=== PATIENT | male | born 1990 | race Caucasian/White ===

== ENCOUNTER 2018-04-23 16:36 | Emergency (ER) | payer OTHER ==
[~2018-04-23] VITALS: Ht 177.8 cm; Wt 59.0 kg
[2018-04-23 16:50] LABS: BASOPHILS % (AUTO) 0 % (0-10); EOSINOPHILS # (AUTO) 0.2 10^3/uL (0.0-0.3); EOSINOPHILS % (AUTO) 2 % (0-10); HEMATOCRIT 46 % (40-54); HEMOGLOBIN 16.3 G/DL (13.3-17.7); LYMPHOCYTES # (AUTO) 2.5 X 10^3 (1.0-4.0); LYMPHOCYTES % (AUTO) 33 % (12-44); MEAN CORPUSCULAR HEMOGLOBIN 32 PG (25-34); MEAN CORPUSCULAR HGB CONC 35 G/DL (32-36); MEAN CORPUSCULAR VOLUME 90 FL (80-99); MEAN PLATELET VOLUME 10.6 FL (7.4-10.4); MONOCYTES # (AUTO) 0.6 X 10^3 (0.0-1.0); MONOCYTES % (AUTO) 8 % (0-12); NEUTROPHILS # (AUTO) 4.3 X 10^3 (1.8-7.8); NEUTROPHILS % (AUTO) 57 % (42-75); PLATELET COUNT 270 10^3/uL (130-400); RED BLOOD COUNT 5.09 10^6/uL (4.35-5.85); RED CELL DISTRIBUTION WIDTH 13.1 % (10.0-14.5); WHITE BLOOD COUNT 7.7 10^3/uL (4.3-11.0)
[2018-04-23 17:00] LABS: INR 1.1 (0.8-1.4); PROTHROMBIN TIME PATIENT 14.5 SEC (12.2-14.7)
[2018-04-23 17:08] LABS: ALANINE AMINOTRANSFERASE 17 U/L (0-55); ALBUMIN 5.1 GM/DL (3.2-4.5); ALKALINE PHOSPHATASE 70 U/L (40-136); BILIRUBIN,TOTAL 0.8 MG/DL (0.1-1.0); BUN/CREATININE RATIO 11; CARBON DIOXIDE 21 MMOL/L (21-32); CHLORIDE 110 MMOL/L (98-107); CREATININE SERUM 0.81 MG/DL (0.60-1.30); GFR ESTIMATED > 60; GLUCOSE 65 MG/DL (70-105); LIPASE 24 U/L (8-78); MAGNESIUM 2.6 MG/DL (1.8-2.4); POTASSIUM 3.8 MMOL/L (3.6-5.0); SODIUM 145 MMOL/L (135-145); TOTAL PROTEIN 8.4 GM/DL (6.4-8.2)
[2018-04-23 17:15] LABS: MYOGLOBIN SERUM 39.8 NG/ML (10.0-92.0)
--- NOTE | 2018-04-23 17:23 | Diagnostic Imaging Report ---
INDICATION: Chest pain and blurry vision. COMPARISON: Comparison is made with a prior study from March 08, 2008. FINDINGS: Lungs demonstrate no focal infiltrate or consolidation. There is no effusion. There is no pneumothorax. Heart size and mediastinal contours appear appropriate. Pulmonary vascularity appears within normal limits. No acute osseous abnormality is demonstrated. IMPRESSION: 1. No radiographic evidence of an acute cardiopulmonary process. Dictated by: Dictated on workstation # [id number]
[2018-04-23] MEDS ORDERED: LORazepam INJ 2 MG/ML (ATIVAN) VIAL IVP PRN (17:30)
[2018-04-23] MEDS ORDERED: KETOROLAC 30 MG/ML VIAL IVP ONE (17:30)
[2018-04-23] MEDS ORDERED: ANTACID SUSP 30 ML UDC (MYLANTA) PO ONE (17:30)
[2018-04-23] MEDS ORDERED: LIDOCAINE 2% VISCOUS 15 ML UDC PO ONE (17:30)
--- NOTE | 2018-04-23 17:30 | ED Chest Pain ---
General Chief Complaint: Chest Pain Stated Complaint: CP X 2 DAYS/VOMITING Nursing Triage Note: complaint of pain since yesterday. pt verbalized added stress in his life. drinking "alot" since thursday. states 1/2 gallen and smokes marijuana Nursing Sepsis Screen: No Definite Risk Source: patient Exam Limitations: no limitations History of Present Illness Date Seen by Provider: Apr 23, 2018 Time Seen by Provider: 17:28 Initial Comments To ER with reports chest pain shortness of breath and vomiting since yesterday. He drinks about half gallon of vodka daily and smokes marijuana daily. Been vomiting. He states his only had one beer today though. Timing/Duration: 4-6 hours Severity/Quality: moderate Location: central Radiation: no radiation Activities at Onset: none ASA po AGILE TESTER: No NTG SL AGILE TESTER: No Associated Symptoms: nausea/vomiting Allergies and Home Medications Allergies Coded Allergies: No Known Drug Allergies (Unverified , 04/23/18) Patient Home Medication List Home Medication List Reviewed: Yes Review of Systems Review of Systems Constitutional: see HPI EENTM: No Symptoms Reported Respiratory: No Symptoms Reported Cardiovascular: See HPI, Chest Pain Gastrointestinal: No Symptoms Reported Genitourinary: No Symptoms Reported Musculoskeletal: no symptoms reported Skin: no symptoms reported Psychiatric/Neurological: No Symptoms Reported Endocrine: No Symptoms Reported Past Nfvgizw-Jjghuy-Ipfwsy Hx Patient Social History Recent Foreign Travel: No Contact w/Someone Who Travel: No Recent Infectious Disease Expo: No Seasonal Allergies Seasonal Allergies: Yes Past Medical History Surgeries: Yes Vasectomy Respiratory: Yes Asthma Physical Exam Vital Signs Vital Signs - First Documented 04/23/18 16:40 Temp 98.5 Pulse 100 Resp 20 B/P (MAP) 130/91 (104) Pulse Ox 100 O2 Delivery Room Air Capillary Refill : Less Than 3 Seconds Height, Weight, BMI Height: 5'10.00" Weight: 130lbs. oz. 58.495688lx; BMI Method:Estimated General Appearance: No Apparent Distress, WD/WN, Other (oxygen saturations 100 % on room air) HEENT: PERRL/EOMI, TMs Normal Neck: Full Range of Motion, Normal Inspection Respiratory: No Accessory Muscle Use, No Respiratory Distress; No Respiratory Distress, No Rhonci, No Stridor, No Wheezing Cardiovascular: Regular Rate, Rhythm, Normal Peripheral Pulses Gastrointestinal: Non Tender, Soft Neurologic/Psychiatric: Alert, Oriented x3, Other (tearful, slurred speech, breath smells of alcohol-like substance) Skin: Normal Color, Warm/Dry Progress/Results/Core Measures Results/Orders Lab Results Laboratory Tests Test 04/23/18 16:42 Range/Units White Blood Count 7.7 4.3-11.0 10^3/uL Red Blood Count 5.09 4.35-5.85 10^6/uL Hemoglobin 16.3 13.3-17.7 G/DL Hematocrit 46 40-54 % Mean Corpuscular Volume 90 80-99 FL Mean Corpuscular Hemoglobin 32 25-34 PG Mean Corpuscular Hemoglobin Concent 35 32-36 G/DL Red Cell Distribution Width 13.1 10.0-14.5 % Platelet Count 270 130-400 10^3/uL Mean Platelet Volume 10.6 H 7.4-10.4 FL Neutrophils (%) (Auto) 57 42-75 % Lymphocytes (%) (Auto) 33 12-44 % Monocytes (%) (Auto) 8 0-12 % Eosinophils (%) (Auto) 2 0-10 % Basophils (%) (Auto) 0 0-10 % Neutrophils # (Auto) 4.3 1.8-7.8 X 10^3 Lymphocytes # (Auto) 2.5 1.0-4.0 X 10^3 Monocytes # (Auto) 0.6 0.0-1.0 X 10^3 Eosinophils # (Auto) 0.2 0.0-0.3 10^3/uL Basophils # (Auto) 0.0 0.0-0.1 10^3/uL Prothrombin Time 14.5 12.2-14.7 SEC INR Comment 1.1 0.8-1.4 Activated Partial Thromboplast Time 33 24-35 SEC Sodium Level 145 135-145 MMOL/L Potassium Level 3.8 3.6-5.0 MMOL/L Chloride Level 110 H 98-107 MMOL/L Carbon Dioxide Level 21 21-32 MMOL/L Anion Gap 14 5-14 MMOL/L Blood Urea Nitrogen 9 7-18 MG/DL Creatinine 0.81 0.60-1.30 MG/DL Estimat Glomerular Filtration Rate > 60 BUN/Creatinine Ratio 11 Glucose Level 65 L 70-105 MG/DL Calcium Level 10.0 8.5-10.1 MG/DL Corrected Calcium 8.5-10.1 MG/DL Magnesium Level 2.6 H 1.8-2.4 MG/DL Total Bilirubin 0.8 0.1-1.0 MG/DL Aspartate Amino Transf (AST/SGOT) 22 5-34 U/L Alanine Aminotransferase (ALT/SGPT) 17 0-55 U/L Alkaline Phosphatase 70 40-136 U/L Myoglobin 39.8 10.0-92.0 NG/ML Troponin I < 0.30 <0.30 NG/ML B-Type Natriuretic Peptide < 10.0 <100.0 PG/ML Total Protein 8.4 H 6.4-8.2 GM/DL Albumin 5.1 H 3.2-4.5 GM/DL Lipase 24 8-78 U/L Serum Alcohol 130 H <10 MG/DL My Orders Orders - ERICK FLAHERTY APRN Cbc With Automated Diff (04/23/18 16:45) Magnesium (04/23/18 16:45) Chest 1 View, Ap/Pa Only (04/23/18 16:45) Ekg Tracing (04/23/18 16:45) Cardiac Profile 1 (04/23/18 16:45) Comprehensive Metabolic Panel (04/23/18 16:45) Myoglobin Serum (04/23/18 16:45) Protime With Inr (04/23/18 16:45) Partial Thromboplastin Time (04/23/18 16:45) O2 (04/23/18 16:45) Monitor-Rhythm Ecg Trace Only (04/23/18 16:45) Lipid Panel (04/24/18 06:00) Saline Lock/Iv-Start (04/23/18 16:45) Lipase (04/23/18 16:45) BNP (04/23/18 16:45) Ketorolac Injection (Toradol Injection) (04/23/18 17:30) Antacid Suspension (Mylanta Suspension (04/23/18 17:30) Lidocaine 2% Viscous 15 Ml (Xylocaine Vi (04/23/18 17:30) Lorazepam Injection (Ativan Injection) (04/23/18 17:30) Alcohol (04/23/18 17:28) Ondansetron Injection (Zofran Injectio (04/23/18 18:00) Ns Iv 1000 Ml (Sodium Chloride 0.9%) (04/23/18 18:00) Medications Given in ED Current Medications Medications Dose Ordered Sig/Shweta Route Start Time Stop Time Status Last Admin Dose Admin Al Hydrox/Mg Hydrox/Simethicone 30 ml ONCE ONCE PO 04/23/18 17:30 04/23/18 17:31 DC 04/23/18 17:45 30 ML Ketorolac Tromethamine 30 mg ONCE ONCE IVP 04/23/18 17:30 04/23/18 17:31 DC 04/23/18 17:45 30 MG Lidocaine HCl 5 ml ONCE ONCE PO 04/23/18 17:30 04/23/18 17:31 DC 04/23/18 17:45 5 ML Lorazepam 1 mg ONCE PRN IVP 04/23/18 17:30 04/23/18 17:45 1 MG Vital Signs/I&O 04/23/18 16:40 Temp 98.5 Pulse 100 Resp 20 B/P (MAP) 130/91 (104) Pulse Ox 100 O2 Delivery Room Air Blood Pressure Mean: 104 Departure Impression Primary Impression: Chest pain Additional Impressions: Alcohol intoxication Gastritis Nausea Disposition: 01 HOME, SELF-CARE Condition: Stable Departure-Patient Inst. Decision time for Depature: 17:57 Referrals: BERNARDO BARKER DO (PCP/Family) Primary Care Physician Patient Instructions: Chest Pain That Is Not Caused by the Heart (DC) Add. Discharge Instructions: 1. Return to ER for any concerns 2. Follow up with your family doctor within one week All discharge instructions reviewed with patient and/or family. Voiced understanding. Scripts Pantoprazole Sodium (Protonix) 40 Mg Tablet.dr 40 MG PO DAILY, #30 TAB Prov: ERICK FLAHERTY [employer] 04/23/18 Ondansetron (Zofran Odt) 8 Mg Tab.rapdis 8 MG PO Q6H PRN for NAUSEA/VOMITING, #10 TAB Prov: ERICK FLHAERTY APRN 04/23/18 ERICK FLAHERTY APRN Apr 23, 2018 17:30
[2018-04-23] MEDS ORDERED: ONDANSETRON 4 MG/2 ML (SDV) Z0FRAN IVP ONE (18:00)
[2018-04-23] MEDS ORDERED: NS IV 1000 ML 1,000 ML IV SCH (18:00)
[2018-04-23] MEDS ORDERED: PANT40TA2 PO (18:07)
[2018-04-23] MEDS ORDERED: ONDA8TAB9 PO (18:07)
[2018-04-23 18:17] VITALS: BP 104/66
--- OUTSIDE RECORDS SUMMARY | 2018-04-24 12:07 | XMS REPORT ---
Author Author RENEE FORMAN [facility] Address [address] [place] [address] Care Team Providers Care Button Breaker Name Role Phone RENEE FORMAN Unavailable PROBLEMS Type Condition ICD9-CM Code [id number] Code Onset Dates Condition Status SNOMED Code Problem Partner relational problem Z63.0 Active 6402129260415 Problem Allergic rhinitis due to pollen, unspecified rhinitis seasonality J30.1 Active 18754647 Problem Unspecified asthma, uncomplicated J45.909 Active 34290320 Problem Need for prophylactic vaccination and inoculation, Influenza V04.81 Active 222094939 ALLERGIES No Information ENCOUNTERS Encounter Location Date Diagnosis [facility] [id number] [place] [phone] Apr, Folliculitis L73.9 [facility] [id number] [place] [address] Jan, Partner relational problem Z63.0 [facility] [id number] [place] [address] Dec, Partner relational problem Z63.0 [facility] [address] [place] [address] Oct, Allergic rhinitis due to pollen, unspecified rhinitis seasonality J30.1 and Unspecified asthma, uncomplicated J45.909 [facility] [id number] [place] [address] Oct, [facility] [id number] [place] [address] Sep, [facility] [id number] [place] [address] Dec, Asthma 493.90 [facility] [id number] [address] November, [facility] [address] [place] [address] Oct, [facility] [address] [place] [address] Oct, [facility] [id number] [place] [address] Mar, [facility] [id number] [place] [address] Mar, [facility] [id number] [place] [address] Feb, [facility] [id number] [place] [address] Feb, [facility] [id number] [place] [address] Dec, [facility] [address] [place] [address] Sep, [facility] [id number] [place] [address] Jul, [facility] [address] [place] [address] Jun, [facility] [address] [place] [address] Jun, [facility] [address] [place] [address] Jun, [facility] [address] [place] [address] Apr, IMMUNIZATIONS No Known Immunizations SOCIAL HISTORY Never Assessed REASON FOR VISIT marriage counsling PLAN OF CARE Activity Details Follow Up 4 Weeks Reason:BH F/U VITAL SIGNS MEDICATIONS Medication Instructions Dosage Frequency Start Date End Date Duration Status Proventil HFA 108 (90 Base) MCG/ACT Inhalation every 4 hrs 2 puffs as needed for cough or wheeze 4h Feb, 30 days Active Albuterol Sulfate 2.5 mg /3 mL (0.083 %) inhale 3 milliliters (2.5 mg) by nebulization route 4 times per day Feb, Active Claritin 10 mg Orally Once a day 1 tablet 24h Oct, Apr, 90 days Active Advair Diskus 500-50 MCG/DOSE Inhalation 1 puff(s) inhaled 2 times a day 1 puffs by Inhalation route 2 times per day Feb, 90 days Active Singulair 10 mg 1 tablet by Oral route 1 time per day Pt must be seen for refills--last seen over a yr ago Mar, 90 days Active RESULTS No Results PROCEDURES Procedure Date Ordered Result Body Site RELATIONSHIP COUN January 05, 2017 INSTRUCTIONS MEDICATIONS ADMINISTERED No Known Medications MEDICAL (GENERAL) HISTORY Type Description Date Medical History asthma Surgical History vasectomy 02/2014
--- OUTSIDE RECORDS SUMMARY | 2018-04-24 12:07 | XMS REPORT ---
Author Author ERNEE FORMAN [facility] Address [address] [place] [address] Care Team Providers Care Seedling Puller Name Role Phone RENEE FORMAN Unavailable PROBLEMS Type Condition ICD9-CM Code [id number] Code Onset Dates Condition Status SNOMED Code Problem Partner relational problem Z63.0 Active [id number] Problem Allergic rhinitis due to pollen, unspecified rhinitis seasonality J30.1 Active 59834670 Problem Unspecified asthma, uncomplicated J45.909 Active 23735886 Problem Need for prophylactic vaccination and inoculation, Influenza V04.81 Active 200083148 ALLERGIES No Information ENCOUNTERS Encounter Location Date Diagnosis [facility] [address] [place] [address] Apr, Folliculitis L73.9 [facility] [id number] [place] [address] Jan, Partner relational problem Z63.0 [facility] [id number] [place] [address] Dec, Partner relational problem Z63.0 [facility] [address] [place] [address] Oct, Allergic rhinitis due to pollen, unspecified rhinitis seasonality J30.1 and Unspecified asthma, uncomplicated J45.909 [facility] [id number] [place] [address] Oct, [facility] [id number] [place] [address] Sep, [facility] [id number] [place] [address] Dec, Asthma 493.90 [facility] [id number], [place] [address] November, [facility] [address] [place] [address] Oct, [facility] [address] [place] [address] Oct, [facility] [address] [place] [address] Mar, [facility] [address] [place] [address] Mar, [facility] [address] [place] [address] Feb, [facility] [address] [place] [address] Feb, [facility] [address] [place] [address] Dec, [facility] [address] [place] [address] Sep, [facility] [address] [place] [address] Jul, [facility] [address] [place] [address] Jun, [facility] [address] [place] [address] Jun, [facility] [id number] [place] [address] Jun, [facility] [address] [place] [address] Apr, IMMUNIZATIONS No Known Immunizations SOCIAL HISTORY Never Assessed REASON FOR VISIT Couples Counseling PLAN OF CARE Activity Details Follow Up 4 Weeks Reason:BH F/U VITAL SIGNS MEDICATIONS No Known Medications RESULTS No Results PROCEDURES Procedure Date Ordered Result Body Site RELATIONSHIP COUN February 02, 2017 INSTRUCTIONS MEDICATIONS ADMINISTERED No Known Medications MEDICAL (GENERAL) HISTORY Type Description Date Medical History asthma Surgical History vasectomy 02/2014
--- OUTSIDE RECORDS SUMMARY | 2018-04-24 12:07 | XMS REPORT ---
Author Author HANY RAMIREZ [facility] Address [address] [place] [address] Care Team Providers Care Pull Worker Name Role Phone HANY RAMIREZ Unavailable PROBLEMS Type Condition ICD9-CM Code GCQ39-YS Code Onset Dates Condition Status SNOMED Code Problem Partner relational problem Z63.0 Active [id number] Problem Allergic rhinitis due to pollen, unspecified rhinitis seasonality J30.1 Active 91003773 Problem Unspecified asthma, uncomplicated J45.909 Active 25934724 Problem Need for prophylactic vaccination and inoculation, Influenza V04.81 Active 638747798 ALLERGIES No Information SOCIAL HISTORY Never Assessed PLAN OF CARE VITAL SIGNS MEDICATIONS Unknown Medications RESULTS No Results PROCEDURES No Known procedures IMMUNIZATIONS No Known Immunizations MEDICAL (GENERAL) HISTORY Type Description Date Medical History asthma Surgical History vasectomy 02/2014
--- OUTSIDE RECORDS SUMMARY | 2018-04-24 12:07 | XMS REPORT ---
Author Author HANY RAMIREZ [facility] Address [address] [place] [address] Care Team Providers Care Audio Video Technician Name Role Phone HANY RAMIREZ Unavailable PROBLEMS Type Condition ICD9-CM Code KMB94-AP Code Onset Dates Condition Status SNOMED Code Problem Partner relational problem Z63.0 Active 0914118729426 Problem Allergic rhinitis due to pollen, unspecified rhinitis seasonality J30.1 Active 39859135 Problem Unspecified asthma, uncomplicated J45.909 Active 45238212 Problem Need for prophylactic vaccination and inoculation, Influenza V04.81 Active 856500628 ALLERGIES No Known Allergies SOCIAL HISTORY Never Assessed PLAN OF CARE Activity Details Follow Up 1 Year Reason:asthma VITAL SIGNS Height 69 in 2016-10-22 Weight 137.8 lbs 2016-10-22 Temperature 98.0 degrees Fahrenheit 2016-10-22 Heart Rate 76 bpm 2016-10-22 Respiratory Rate 18 2016-10-22 BMI 20.35 kg/m2 2016-10-22 Blood pressure systolic 110 mmHg 2016-10-22 Blood pressure diastolic 78 mmHg 2016-10-22 MEDICATIONS Medication Instructions Dosage Frequency Start Date End Date Duration Status Claritin 10 mg Orally Once a day 1 tablet 24h Oct, Apr, 90 days Active Singulair 10 mg 1 tablet by Oral route 1 time per day Pt must be seen for refills--last seen over a yr ago Mar, 90 days Active Proventil HFA 108 (90 Base) MCG/ACT Inhalation every 4 hrs 2 puffs as needed for cough or wheeze 4h Feb, 30 days Active Albuterol Sulfate 2.5 mg /3 mL (0.083 %) inhale 3 milliliters (2.5 mg) by nebulization route 4 times per day Feb, Active Advair Diskus 500-50 MCG/DOSE Inhalation 1 puff(s) inhaled 2 times a day 1 puffs by Inhalation route 2 times per day Feb, 90 days Active RESULTS No Results PROCEDURES No Known procedures IMMUNIZATIONS No Known Immunizations MEDICAL (GENERAL) HISTORY Type Description Date Medical History asthma Surgical History vasectomy 02/2014
--- OUTSIDE RECORDS SUMMARY | 2018-04-24 12:07 | XMS REPORT | Continuity of Care Document ---
Author Author [facility] Address Unknown Phone Unavailable Allergies There is no data. Medications There is no data. Problems Date Dx Coded Attending Type Code Diagnosis Diagnosed By 04/27/2008 462 PHARYNGITIS ACUTE 04/27/2008 493.90 ASTHMA UNSPECIFIED 04/27/2008 HANY RAMIREZ APRN 462 PHARYNGITIS ACUTE 04/27/2008 HANY RAMIREZ APRN 493.90 ASTHMA UNSPECIFIED 06/19/2011 493.00 ASTHMA EXTRINSIC 06/19/2011 HANY RAMIREZ APRN 493.00 ASTHMA EXTRINSIC 07/24/2011 V04.81 FLU DX (3 YRS AND ABOVE, IM) 07/24/2011 HANY RAMIREZ APRN V04.81 FLU DX (3 YRS AND ABOVE, IM) Procedures There is no data. Results Test Result Range Complete blood count (CBC) with automated white blood cell (WBC) differential - 04/23/18 16:42 Blood leukocytes automated count (number/volume) 7.7 10*3/uL 4.3-11.0 Blood erythrocytes automated count (number/volume) 5.09 10*6/uL 4.35-5.85 Venous blood hemoglobin measurement (mass/volume) 16.3 g/dL 13.3-17.7 Blood hematocrit (volume fraction) 46 % 40-54 Automated erythrocyte mean corpuscular volume 90 [foz_us] 80-99 Automated erythrocyte mean corpuscular hemoglobin (mass per erythrocyte) 32 pg 25-34 Automated erythrocyte mean corpuscular hemoglobin concentration measurement ( mass/volume) 35 g/dL 32-36 Automated erythrocyte distribution width ratio 13.1 % 10.0-14.5 Automated blood platelet count (count/volume) 270 10*3/uL 130-400 Automated blood platelet mean volume measurement 10.6 [foz_us] 7.4-10.4 Automated blood neutrophils/100 leukocytes 57 % 42-75 Automated blood lymphocytes/100 leukocytes 33 % 12-44 Blood monocytes/100 leukocytes 8 % 0-12 Automated blood eosinophils/100 leukocytes 2 % 0-10 Automated blood basophils/100 leukocytes 0 % 0-10 Blood neutrophils automated count (number/volume) 4.3 10*3 1.8-7.8 Blood lymphocytes automated count (number/volume) 2.5 10*3 1.0-4.0 Blood monocytes automated count (number/volume) 0.6 10*3 0.0-1.0 Automated eosinophil count 0.2 10*3/uL 0.0-0.3 Automated blood basophil count (count/volume) 0.0 10*3/uL 0.0-0.1 PT panel in platelet poor plasma by coagulation assay - 04/23/18 16:42 Prothrombin time (PT) in platelet poor plasma by coagulation assay 14.5 s 12.2-14.7 INR in platelet poor plasma or blood by coagulation assay 1.1 0.8-1.4 Activated partial thromboplastin time (aPTT) in platelet poor plasma bycoagulation assay - 04/23/18 16:42 Activated partial thromboplastin time (aPTT) in platelet poor plasma bycoagulation assay 33 s 24-35 Comprehensive metabolic panel - 04/23/18 16:42 Serum or plasma sodium measurement (moles/volume) 145 mmol/L 135-145 Serum or plasma potassium measurement (moles/volume) 3.8 mmol/L 3.6-5.0 Serum or plasma chloride measurement (moles/volume) 110 mmol/L 98-107 Carbon dioxide 21 mmol/L 21-32 Serum or plasma anion gap determination (moles/volume) 14 mmol/L 5-14 Serum or plasma urea nitrogen measurement (mass/volume) 9 mg/dL 7-18 Serum or plasma creatinine measurement (mass/volume) 0.81 mg/dL 0.60-1.30 Serum or plasma urea nitrogen/creatinine mass ratio 11 NRG Serum or plasma creatinine measurement with calculation of estimated glomerular filtration rate > NRG Serum or plasma glucose measurement (mass/volume) 65 mg/dL 70-105 Serum or plasma calcium measurement (mass/volume) 10.0 mg/dL 8.5-10.1 Serum or plasma total bilirubin measurement (mass/volume) 0.8 mg/dL 0.1-1.0 Serum or plasma alkaline phosphatase measurement (enzymatic activity/volume) 70 U/L 40-136 Serum or plasma aspartate aminotransferase measurement (enzymatic activity/ volume) 22 U/L 5-34 Serum or plasma alanine aminotransferase measurement (enzymatic activity/volume ) 17 U/L 0-55 Serum or plasma protein measurement (mass/volume) 8.4 g/dL 6.4-8.2 Serum or plasma albumin measurement (mass/volume) 5.1 g/dL 3.2-4.5 Magnesium - 04/23/18 16:42 Magnesium 2.6 mg/dL 1.8-2.4 Serum or plasma troponin i.cardiac measurement (mass/volume) - 04/23/18 16:42 Serum or plasma troponin i.cardiac measurement (mass/volume) < ng/ mL <0.30 Myoglobin, serum - 04/23/18 16:42 Myoglobin, serum 39.8 ng/mL 10.0-92.0 Lipase - 04/23/18 16:42 Lipase 24 U/L 8-78 Serum or plasma lithium measurement (moles/volume) - 04/23/18 16:42 BNP level < pg/mL <100.0 Serum or plasma ethanol measurement (mass/volume) - 04/23/18 16:42 Serum or plasma ethanol measurement (mass/volume) 130 mg/dL <10 Encounters ACCT No. Visit Date/Time Discharge Status Pt. Type Provider Facility Loc./Unit Complaint [id number] 03/10/2013 17:41:00 03/10/2013 23:59:59 [facility] Outpatient HANY RAMIREZ APRN [id number] 07/24/2011 16:55:00 Document Registration [id number] 05/04/2017 12:05:00 05/04/2017 23:59:59 [facility] Outpatient HANY RAMIREZ APRN [facility] [id number] 04/23/2018 16:51:00 Document Registration
== END 2018-04-23 18:17 | disposition home or self-care (01) ==
LOC: EDUNIT# 16:36 → ER 16:37
DX: R07.89 Other chest pain (principal); F10.129 Alcohol abuse with intoxication, unspecified; K29.70 Gastritis, unspecified, without bleeding; J45.909 Unspecified asthma, uncomplicated; F12.10 Cannabis abuse, uncomplicated; F10.10 Alcohol abuse, uncomplicated; Z98.52 Vasectomy status
CPT/HCPCS: 36415; 71045; 80053; 80320; 83690; 83735; 83874; 83880; 84484; 85025; 85610; 85730; 93041

== ENCOUNTER 2019-07-04 09:46 | Emergency (ER) | payer BC, OTHER ==
[~2019-07-04] VITALS: Ht 177.8 cm; Wt 61.4 kg
[~2019-07-04 09:46] MED LIST: ONDA8TAB9 PO; PANT40TA2 PO
--- NOTE | 2019-07-04 09:57 | ED Integumentary General ---
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 He is having some bleeding but using pressure he was able to stop. He poured some hydrogen peroxide over it. He has not had a tetanus vaccination the last 5 years. He is not taking any medicines nor have any significant medical or surgical history. He is not having any significant pain. He is able to walk on it without issue. Allergies and Home Medications Allergies Coded Allergies: No Known Drug Allergies (Unverified , 04/23/18) Home Medications Cephalexin 500 Mg Tablet, 500 MG PO TID Prescribed by: SHANNAN TEJEDA on 07/04/19 1140 Ondansetron 8 Mg Tab.rapdis, 8 MG PO Q6H PRN for NAUSEA/VOMITING Prescribed by: ERICK FLAHERTY on 04/23/18 180 Pantoprazole Sodium 40 Mg Tablet.dr, 40 MG PO DAILY Prescribed by: ERICK FLAHERTY on 04/23/18 180 Patient Home Medication List Home Medication List Reviewed: Yes Review of Systems Review of Systems Constitutional: No chills, No diaphoresis EENTM: No ear discharge, No hearing loss Respiratory: No cough, No dyspnea on exertion Cardiovascular: No chest pain, No palpitations Gastrointestinal: No abdominal pain, No nausea Genitourinary: No discharge, No dysuria Past Csuyfyc-Fkuhtk-Qjipsb Hx Patient Social History Alcohol Use: Denies Use Recreational Drug Use: No Smoking Status: Never a Smoker Recent Foreign Travel: No Contact w/Someone Who Travel: No Seasonal Allergies Seasonal Allergies: Yes Past Medical History Surgeries: Yes Vasectomy Respiratory: Yes Asthma Physical Exam Vital Signs Vital Signs - First Documented 07/04/19 09:50 Temp 36.5 Pulse 76 Resp 17 B/P (MAP) 107/63 (78) Pulse Ox 99 O2 Delivery Room Air Capillary Refill : General Appearance: WD/WN, no apparent distress HEENT: PERRL/EOMI, pharynx normal Cardiovascular: normal peripheral pulses, regular rate, rhythm Respiratory: no respiratory distress, no accessory muscle use Gastrointestinal: non tender, soft Skin: other (3 cm linear laceration in the adipose tissue superior and medial to the left knee, patella) Procedures/Interventions Wound Location: Lower Extremities Other Wound Location Left knee lateral and superior to the patella Wound Length (cm): 3 Wound's Depth, Shape: linear, sub Q Wound Explored: clean Irrigated w/ Saline (ccs): 50 Betadine Prep?: Yes (chlorhexidine and sterile saline) Anesthesia: 1% Lidocaine Volume Anesthetic (ccs): 4 Wound Debrided: minimal Suture: Ethlion Suture Size: 4-0 Number of Sutures: 3 Layer Closure?: 1 Sterile Dressing Applied?: Yes Progress Skin was thoroughly cleaned with chlorhexidine and sterile saline and then flushed the wound. Were unable to find the small slow either arterial or venous bleed.. 3 simple interrupted sutures and placed a compression dressing using Trovan which stopped the bleeding and swelling. Progress/Results/Core Measures Results/Orders My Orders Orders - SHANNAN TEJEDA Lidocaine 1% Inj 20 Ml (Xylocaine 1% Inj (07/04/19 10:00) Dipht,Pertuss(Acell),Tet Adult (Boostrix (07/04/19 10:00) Medications Given in ED Current Medications Medications Dose Ordered Sig/Shweta Route Start Time Stop Time Status Last Admin Dose Admin Diphtheria/ Tetanus/Acell Pertussis 0.5 ml ONCE ONCE IM 07/04/19 10:00 07/04/19 10:01 DC 07/04/19 10:40 0.5 ML Lidocaine HCl 20 ml ONCE ONCE INJ 07/04/19 10:00 07/04/19 10:01 DC 07/04/19 10:41 20 ML Vital Signs/I&O 07/04/19 07/04/19 09:50 11:52 Temp 36.5 36.5 Pulse 76 76 Resp 17 17 B/P (MAP) 107/63 (78) 110/66 (78) Pulse Ox 99 99 O2 Delivery Room Air Room Air Progress Progress Note : Time: 11:35 Progress Note Tetanus vaccination was given. Patient declined any pain meds. Departure Impression Primary Impression: Laceration of left lower leg without complication Qualified Codes: S81.812A - Laceration without foreign body, left lower leg, initial encounter Additional Impression: Hematoma Disposition: 01 HOME, SELF-CARE Condition: Stable Departure-Patient Inst. Decision time for Depature: 11:38 Referrals: [facility] (PCP) Primary Care Physician HANY RAMIREZ (Family) Primary Care Physician Patient Instructions: Laceration Repair With Stitches (DC) Add. Discharge Instructions: Keep the wound clean with regular soap and water. Change the dressing daily or as often as it becomes soiled. Keep some compression on the wound for the first 2-3 days as well as use ice 20 minutes on every 4 hours while awake. Elevate the leg above the level of your heart. If you have increased swelling you need more compression and elevation. 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 Keflex one capsule 3 times a day for the next 3 days to prevent infection. Tylenol 1000 mg every 8 hours as needed for pain. Ibuprofen 800 mg every 8 hours as needed for pain. Stay off your leg as much as possible for the next 2 days. Return to the ER in 7-10 days to have the sutures out. Return to the doctor sooner if he started to notice redness going up her leg, fever, vomiting or other worrisome symptoms such as discharge from the wound. Scripts Cephalexin (Cephalexin) 500 Mg Tablet 500 MG PO TID for 3 Days, #9 TAB 0 Refills Prov: SHANNAN TEJEDA 07/04/19 Work/School Note: Work Release Form Date Seen in the Emergency Department: Jul 04, 2019 Return to Work: Jul 07, 2019 Restrictions: No Restrictions SHANNAN TEJEDA Jul 04, 2019 09:57
[2019-07-04] MEDS ORDERED: LIDOCAINE 1% INJ 20 ML 20 ML VIAL INJ ONE (10:00)
[2019-07-04] MEDS ORDERED: TETANUS,DIPTH,PERTUSS P/F (BOOSTRIX) 0.5 ML VIAL IM ONE (10:00)
[2019-07-04] MEDS ORDERED: CEPH500T PO (11:40)
[2019-07-04 11:52] VITALS: BP 110/66
== END 2019-07-04 11:52 | disposition home or self-care (01) ==
LOC: EDUNIT# 09:46 → ER 09:47
DX: S81.812A Laceration without foreign body, left lower leg, initial encounter (principal); T14.8XXA Other injury of unspecified body region, initial encounter; J45.909 Unspecified asthma, uncomplicated; Z23 Encounter for immunization; W26.8XXA Contact with other sharp object(s), not elsewhere classified, initial encounter
CPT/HCPCS: 12001; 90471; 90715

== ENCOUNTER → 2019-07-15 | Emergency (ER) | payer BC ==
[~2019-07-15] VITALS: Ht 175 cm; Wt 68.1 kg
[~2019-07-15] MED LIST changes: +CEPH500T PO
[2019-07-15 10:30] VITALS: BP 0/0
--- NOTE | 2019-07-15 10:44 | ED Suture Removal/Wound Check ---
Suture/Wound Re-check Suture Removal/Wound Recheck : Suture Removal/Wound Recheck: Sutures removed by MD General Appearance: WD/WN, no apparent distress Neuro/Tendon: normal sensation, normal motor functions, normal tendon functions Skin Exam: normal color, warm/dry Comments Sutures were removed from the laceration distal medial portion of the right thigh. Steri-Strips and Mastisol were applied as the wound was not completely healed. There was no evidence of infection. Patient was asked to leave the Steri-Strips and Mastisol in place until they fell off on their own. Physical Exam Vital Signs Capillary Refill : Normal General Appearance: WD/WN, no apparent distress HEENT: normal ENT inspection Neck: normal inspection Respiratory: no respiratory distress Extremities: normal inspection Neurologic/Psychiatric: alert Skin: normal color, warm/dry Departure Impression Primary Impression: Visit for suture removal Disposition: 01 HOME, SELF-CARE Condition: Improved Departure-Patient Inst. Decision time for Depature: 10:43 Referrals: [facility] (PCP) Primary Care Physician HANY RAMIREZ (Family) Primary Care Physician Patient Instructions: SUTURE REMOVAL-UNCOMPLICATED Add. Discharge Instructions: Leave Steri-Strips in place for the next week to 10 days. Return if any problems or questions. All discharge instructions reviewed with patient and/or family. Voiced understanding. JACOB COHEN MD Jul 15, 2019 10:44
== END | disposition home or self-care (01) ==
LOC: ER 10:24 → EDUNIT# 10:24
DX: S71.111D Laceration without foreign body, right thigh, subsequent encounter (principal); X58.XXXD Exposure to other specified factors, subsequent encounter